=== PATIENT | female | born 1985 | race Caucasian/White ===

== ENCOUNTER 2016-08-06 20:48 | Emergency (ER) | payer OTHER ==
[~2016-08-06] VITALS: Ht 175.3 cm; Wt 83.9 kg
[2016-08-06 20:48] VITALS: Ht 175.3 cm; Wt 83.9 kg
[~2016-08-06 20:48] MED LIST: NO KNOWN MEDICATIONS
--- OUTSIDE RECORDS SUMMARY | 2016-08-06 20:51 | XMS REPORT | Referral Summary ---
Author Author [facility] Organization [facility] Address Unknown Phone Unavailable Care Team Providers Care Tower Observer Name Role Phone No PCP, Pt States Primary Care Physician [phone] Encounter VC Date(s): 04/11/16 - 04/11/16 [facility] [address] [place], [place] [address] Discharge Diagnosis: Upper respiratory virus Discharge Diagnosis: Cough Discharge Disposition: 01-Home or Self Care Attending Physician: Angelo Oates MD Admitting Physician: Angelo Oates MD Vital Signs Most recent to 1 oldest [Reference Range]: Temperature Oral 36.7 degC [35.8-37.3 degC] (04/11/16 7:21 PM) Peripheral Pulse 80 bpm Rate [60-100 bpm] (04/11/16 8:34 PM) Respiratory Rate 18 br/min [14-20 br/min] (04/11/16 8:34 PM) Blood Pressure 113/76 mmHg [90-140/60-90 mmHg] (04/11/16 8:34 PM) SpO2 100 % (04/11/16 8:34 PM) Problem List Condition Effective Dates Status Health Status Informant Tobacco Active patient user(Confirmed) Allergies, Adverse Reactions, Alerts Substance Reaction Severity Status Triaminic Cough Mild Active Medications Nyquil Cold & Flu caps, Oral, q6hr, 0 Refill(s) Start Date: 04/11/16 Status: Ordered Tessalon 200 mg oral capsule 200 mg 1 caps, Oral, TID, # 21 caps, 0 Refill(s) Start Date: 04/11/16 Stop Date: 04/18/16 Status: Ordered Results No data available for this section Immunizations No data available for this section Procedures Procedure Date Related Diagnosis Body Site [place] Teeth 2002 Social History Social History Type Response Smoking Status Current some day smoker; Type: Cigarettes Assessment and Plan No data available for this section
--- OUTSIDE RECORDS SUMMARY | 2016-08-06 20:51 | XMS REPORT | Continuity of Care Document ---
Author Author [facility] Organization [facility] Address Unknown Phone Unavailable Allergies Active Description Code Type Severity Reaction Onset Reported/Identified Relationship to Patient Clinical Status Yes Triaminic Drug Allergy N/A Eczema (rash) 10/22/2010 Yes No Known Food Allergies Food Allergy N/A N/A 11/19/2010 Yes No Allergy Information Drug Allergy N/A N/A 07/11/2013 Medications Problems Date Dx Coded Attending Type Code Diagnosis Diagnosed By 07/10/2013 Jaydon Cohn MD Final 599.0 URINARY TRACT INF NOS 07/10/2013 Jaydon Cohn MD Admitting 789.00 ABDOMINAL PAIN-SITE NOS 07/10/2013 Jaydon Cohn MD Final 789.06 EPIGASTRIC ABD PAIN Procedures Results Encounters ACCT No. Visit Date/Time Discharge Status Pt. Type Provider Facility Loc./Unit Complaint [id number] 07/10/2013 22:45:00 2013 02:22:00 DIS Emergency Jaydon Cohn MD [facility] on [address] [facility]
--- OUTSIDE RECORDS SUMMARY | 2016-08-06 20:51 | XMS REPORT | Continuity of Care Document ---
Author Author [facility] Organization [facility] Address Unknown Phone Unavailable Support Name Relationship Address Phone LAWRENCE PEREIRA DO Caregiver [address] [place] [address] JOSEPHINE RODRÍGUEZ MD Caregiver [address] [place] [address] [place] [phone] MADY ANNIKA Next Of Kin [address] [place] [address] Insurance Providers Payer Name Policy Number Subscriber Name Relationship Self Pay Jose LNuvia Esteves 17 Self Problems Medical Problems Problem Onset Date Status Contusion of right foot Unknown Active Contusion of right foot Unknown Active Medications Medication Dose Route Sig Days/Qty Instructions Order Date Discontinued Date Status Miscellaneous Information 10/27/13 Active Social History Social History Problem Response Recorded Date/Time Smoking Status Unknown if ever smoked 10/27/2013 5:34am Hospital Discharge Instructions No hospital discharge instructions. Plan of Care No plan of care. Functional Status Query Response Date Recorded Physical Hygiene Self October 27, 2013 5:34am Disabilities Visual October 27, 2013 5:34am Devices Used Glasses October 27, 2013 5:34am Dressing Self October 27, 2013 5:34am Ambulation Self October 27, 2013 5:34am Diet Self October 27, 2013 5:34am Mental Status Alert Oriented October 27, 2013 5:34am Disabilities Visual October 27, 2013 5:34am Devices Used Glasses October 27, 2013 5:34am Physical Hygiene Self October 27, 2013 5:34am Dressing Self October 27, 2013 5:34am Ambulation Self October 27, 2013 5:34am Diet Self October 27, 2013 5:34am Allergies, Adverse Reactions, Alerts Allergen Type Severity Reaction Status Last Updated YELLOW TRIAMINIC Allergy Unknown Active 10/27/13 Immunizations Name Given Type Hx Tetanus, Diptheria, Pertussis N NO OPEN SKIN Historical Hx Tetanus, Diptheria, Pertussis N NO OPEN SKIN Historical Vital Signs Acute Vital Signs Vital Response Date/Time Temperature (Fahrenheit) 97.8 deg F (96.8 - 99.1) Temperature (Calculated Celsius) 36.14663 degrees C (36.0 - 37.3) Pulse Rate (adult) 78 bpm (60 - 100) Respiratory Rate 16 breaths/min (10 - 20) O2 Sat by Pulse Oximetry 100 % (90 - 100) Blood Pressure 108/70 mm Hg Height 5 ft 9 in Weight 163 lb Body Mass Index 24.0 kg/m^2 Results No known relevant diagnostic tests, laboratory data and/or discharge summary. Procedures No known history of procedures. Encounters Encounter Location Date/Time Departed Emergency Room [facility] 10/26/13 9:18pm Recent Diagnosis
--- OUTSIDE RECORDS SUMMARY | 2016-08-06 20:51 | XMS REPORT | Continuity of Care Document ---
Author Author Ayaan Reyes MD [facility] Address [address] [facility] [place] [address] Phone Care Team Providers Care Manager Account Management Name Role Phone CollierBeto PP Unavailable Payers Payer name Insurance type Covered republican ID Authorization(s) Unknown Problems Condition Effective Dates (start - stop) Clinical Status Physical examination of employee - *Routine Dysmenorrhea - *Chronic Acute upper respiratory infections of unspecified site - *Acute Other general counseling and advice for contracept - *Acute Depression - *Chronic screening for TB - Recurrent Examination, physical, employee - *Routine Depression - *Stable Pyelonephritis - *Resolved Depression - *Chronic Other general counseling and advice for contracept - *Acute Other general counseling and advice for contracept - *Acute Family History Family Member Diagnosis Age At Onset Status Family h/o (Unknown) Diabetes Yes Family h/o (Unknown) Cancer - ovarian Yes Family h/o (Unknown) Hypertension Yes Father (Unknown) Hypertension Yes Mother (Unknown) Cancer - unknown Yes Family h/o (Unknown) Arthritis Yes Mother (Unknown) Hypertension Yes Mother (Unknown) Diabetes Yes Father (Unknown) Hyperlipidemia Yes Mother (Unknown) Anemia Yes Mother (Unknown) Arthritis Yes Family h/o (Unknown) Hyperlipidemia Yes Father (Unknown) Diabetes Yes Father (Unknown) Arthritis Yes Social History Social History Element Description Quantity Unknown Allergies, Adverse Reactions, Alerts Substance Reaction Severity Status Unknown WARNIN allergie(s) could not be collected because the type is not supported. Please contact the source practice for further details. Medications Medication Instructions Dosage Effective Dates (start - stop) Status Provera 10 mg tablet take 1 tablet (10MG) by oral route every day for 10 days start with next menstruation 10 MG - No Longer Active Immunizations Vaccine Date Status Comments Unknown Results Test Name Date and Time Measure Units Reference Range Abnormal Flag Comments Unknown Vital Signs Date / Time: Height Weight Pulse Rate Blood Pressure Temperature /15:54:00 69.00 in 175.00 lbs 76 /min 110/80 mm[Hg] 97.1 F Procedures Procedure Date Unknown Encounters Encounter Location Date Patient Visit [facility] [place] Patient [facility] Patient Visit [facility] [place] Patient Visit [facility] [place] Patient Visit [facility] [place] Patient Visit [facility] [place] Patient Visit [facility] [place] Patient Visit [facility] [place] Patient Visit [facility] [place] Advance Directives Directive Effective Date Unknown
--- OUTSIDE RECORDS SUMMARY | 2016-08-06 20:51 | XMS REPORT | Referral Summary ---
Author Author [facility] Organization [facility] Address Unknown Phone Unavailable Care Team Providers Care Academy Education Director Name Role Phone No PCP, [facility] Primary Care Physician [phone] Encounter VC Date(s): 04/22/16 - 04/22/16 [facility] [address] [place] [address] [facility] Discharge Diagnosis: Cough Discharge Diagnosis: Maxillary sinusitis Discharge Disposition: 01-Home or Self Care Attending Physician: Desire Lai APRN Attending Physician: Provider, Immediate Care Admitting Physician: Provider, Immediate Care Vital Signs Most recent to 1 oldest [Reference Range]: Temperature Oral 36.2 degC [35.8-37.3 degC] (04/22/16 3:31 PM) Peripheral Pulse 92 bpm Rate [60-100 bpm] (04/22/16 3:31 PM) Blood Pressure 115/70 mmHg [90-140/60-90 mmHg] (04/22/16 3:31 PM) SpO2 98 % (04/22/16 3:31 PM) Problem List Condition Effective Dates Status Health Status Informant Tobacco Active patient user(Confirmed) Allergies, Adverse Reactions, Alerts Substance Reaction Severity Status Triaminic Cough Mild Active Medications Augmentin 875 mg-125 mg oral tablet 1 tabs, Oral, q12hr, with food or milk, X 7 days, # 14 tabs, 0 Refill(s), Pharmacy: [facility]/pharmacy #[id number] Start Date: 04/22/16 Stop Date: 04/29/16 Status: Ordered Nyquil Cold & Flu caps, Oral, q6hr, 0 Refill(s) Start Date: 04/11/16 Status: Ordered promethazine-codeine 6.25 mg-10 mg/5 mL oral syrup 5 mL, Oral, q4hr, as needed for cough, # 60 mL, 0 Refill(s) Start Date: 04/22/16 Status: Ordered Tessalon 200 mg oral capsule 200 mg 1 caps, Oral, TID, # 21 caps, 0 Refill(s) Start Date: 04/11/16 Stop Date: 04/18/16 Status: Ordered Results No data available for this section Immunizations No data available for this section Procedures Procedure Date Related Diagnosis Body Site [place] Teeth 2002 Social History Social History Type Response Smoking Status Current some day smoker; Type: Cigarettes Assessment and Plan Extracted from: Title: Office Visit Note Author: Desire Lai [employer]OM[employer] THREAD WINDER Date: 04/22/16 Assessment/Plan 1.Maxillary sinusitis augmentin sent to pharmacy. continue home treatments that are helping. push fluids. Diagnosis and treatment discussed. Patient advised to follow-up with PCP in 2-3 days if symptoms do not improve. If symptoms worsen at any time , patient will go to the nearest ER for further evaluation. Patient stable upon discharge, alert and orientated with no apparent distress, all questions answered, and indicated understanding of discharge instructions. Ordered: Office Visit Level 3 Est 61232 2.Cough,Cough CXR negative. continue home treatments as needed. push fluids. use humidifier. Diagnosis and treatment discussed. Patient advised to follow-up with PCP in 2-3 days if symptoms do not improve. If symptoms worsen at any time , patient will go to the nearest ER for further evaluation. Patient stable upon discharge, alert and orientated with no apparent distress, all questions answered, and indicated understanding of discharge instructions. Ordered: Office Visit Level 3 Est [address]147
--- OUTSIDE RECORDS SUMMARY | 2016-08-06 20:51 | XMS REPORT | Referral Summary ---
Author Author [facility] Organization [facility] Address Unknown Phone Unavailable Care Team Providers Care Sweater Designer Name Role Phone No PCP, Pt States Primary Care Physician [phone] Encounter [facility] [id number] Date(s): 06/03/16 - 06/03/[address] [facility] [address] [place], [place] [address] Discharge Diagnosis: Dental infection Discharge Diagnosis: Fractured tooth Discharge Disposition: 01-Home or Self Care Attending Physician: Aaron Wick DO Admitting Physician: Aaron Wick DO Vital Signs Most recent to 1 oldest [Reference Range]: Temperature Temporal 37.2 degC Artery [36.3-37.8 (06/03/16 3:50 PM) degC] Peripheral Pulse 66 bpm Rate [60-100 bpm] (06/03/16 3:50 PM) Respiratory Rate 16 br/min [14-20 br/min] (06/03/16 3:50 PM) Blood Pressure 125/75 mmHg [90-140/60-90 mmHg] (06/03/16 3:50 PM) SpO2 100 % (06/03/16 3:50 PM) Problem List Condition Effective Dates Status Health Status Informant Tobacco Active patient user(Confirmed) Allergies, Adverse Reactions, Alerts Substance Reaction Severity Status Triaminic Cough Mild Active Medications amoxicillin 500 mg oral capsule 500 mg 1 caps, Oral, TID, X 7 days, # 21 caps, 0 Refill(s) Start Date: 06/03/16 Stop Date: 06/10/16 Status: Ordered Nyquil Cold & Flu caps, [...] Date: 04/11/16 Stop Date: 04/18/16 Status: Ordered Tylenol with Codeine #3 oral tablet 1 tabs, Oral, q4hr, as needed for pain, # 12 tabs, 0 Refill(s) Start Date: 06/03/16 Status: Ordered Results No data available for this section Immunizations No data available for this section Procedures Procedure Date Related Diagnosis Body Site [place] Teeth 2002 Social History Social History Type Response Smoking Status Current some day smoker; Type: Cigarettes Assessment and Plan No data available for this section
--- OUTSIDE RECORDS SUMMARY | 2016-08-06 20:52 | XMS REPORT | Referral Summary ---
Author Author [facility] Organization [facility] Address Unknown Phone Unavailable Care Team Providers Care Embroiderer Name Role Phone Other Doctor, [facility] Primary Care Physician Unavailable Encounter [facility] [id number] Date(s): 10/17/15 - 10/17/[address] [facility] [address] [place], [place] [address] Discharge Diagnosis: Right sided abdominal pain Discharge Diagnosis: Urinary tract infection Discharge Disposition: 01-Home or Self Care Attending Physician: Ken Calderon MD Admitting Physician: Ken Calderon MD Vital Signs Most recent to 1 oldest [Reference Range]: Temperature Oral 37.0 degC [35.8-37.3 degC] (10/17/15 5:01 PM) Peripheral Pulse 73 bpm Rate [60-100 bpm] (10/17/15 5:01 PM) Heart Rate Monitored 71 bpm [60-100 bpm] (10/17/15 7:33 PM) Respiratory Rate 18 br/min [14-20 br/min] (10/17/15 5:01 PM) Blood Pressure 116/86 mmHg [90-140/60-90 mmHg] (10/17/15 7:15 PM) Mean Arterial 90 mmHg Pressure, Cuff (10/17/15 7:33 PM) SpO2 98 % (10/17/15 5:46 PM) Problem List Condition Effective Dates Status Health Status Informant Tobacco Active patient user(Confirmed) Allergies, Adverse Reactions, Alerts Substance Reaction Severity Status Triaminic Cough Mild Active Medications Cipro 500 mg oral tablet 500 mg 1 tabs, Oral, q12hr, X 7 days, # 14 tabs, 0 Refill(s) Start Date: 10/17/15 Stop Date: 10/24/15 Status: Ordered Zofran ODT 4 mg oral tablet, disintegrating 4 mg 1 tabs, Oral, q6hr, X 5 days, # 20 tabs, 0 Refill(s) Start Date: 10/17/15 Stop Date: 10/22/15 Status: Ordered Results Hematology Most recent to 1 oldest [Reference Range]: WBC [4.8-10.8 8.2 10*3/uL 10*3/uL] (10/17/15 5:43 PM) RBC [4.00-5.20] 4.65 (10/17/15 5:43 PM) Hgb [12.0-16.0 13.4 gm/dL gm/dL] (10/17/15 5:43 PM) Hct [37.0-47.0 %] 40.2 % (10/17/15 5:43 PM) MCV [82.0-99.0 fL] 86.5 fL (10/17/15 5:43 PM) MCH [27.0-32.0 pg] 28.8 pg (10/17/15 5:43 PM) MCHC [32.0-36.0 33.3 gm/dL gm/dL] (10/17/15 5:43 PM) RDW [11.5-14.5 %] 13.5 % (10/17/15 5:43 PM) Platelet [150-400 227 10*3/uL 10*3/uL] (10/17/15 5:43 PM) MPV [9.4-12.4 fL] 10.6 fL (10/17/15 5:43 PM) Immature 0.4 % Granulocytes (10/17/15 5:43 PM) [0.0-1.0 %] Neutrophils [51-75 63 % %] (10/17/15 5:43 PM) Lymphocytes [20-46 27 % %] (10/17/15 5:43 PM) Monocytes [4-11 %] 7 % (10/17/15 5:43 PM) Eosinophils [0-4 %] 2 % (10/17/15 5:43 PM) Basophils [0-2 %] 0 % (10/17/15 5:43 PM) Neutro Absolute 5.12 10*3 [1.90-7.00 10*3] (10/17/15 5:43 PM) Lymph Absolute 2.24 10*3 [0.80-3.30 10*3] (10/17/15 5:43 PM) Kane Absolute 0.61 10*3 [0.30-1.00 10*3] (10/17/15 5:43 PM) Eos Absolute 0.18 10*3 [0.00-0.50 10*3] (10/17/15 5:43 PM) Baso Absolute 0.02 10*3 [0.00-0.20 10*3] (10/17/15 5:43 PM) Chemistry Most recent to 1 oldest [Reference Range]: Sodium Lvl [136-144 137 mEq/L mEq/L] (10/17/15 5:43 PM) Potassium Lvl 3.5 mEq/L [3.6-5.1 mEq/L] *LOW* (10/17/15 5:43 PM) Chloride [99-109 105 mEq/L mEq/L] (10/17/15 5:43 PM) CO2 [22-32 mEq/L] 24 mEq/L (10/17/15 5:43 PM) AGAP [3-20] 8 (10/17/15 5:43 PM) BUN [4-20 mg/dL] 12 mg/dL (10/17/15 5:43 PM) Glucose Lvl [70-100 100 mg/dL mg/dL] (10/17/15 5:43 PM) Creatinine Lvl 0.70 mg/dL [0.44-1.03 mg/dL] (10/17/15 5:43 PM) eGFR [>60] >60 1 (10/17/15 5:43 PM) Calcium Lvl 9.2 mg/dL [8.6-10.0 mg/dL] (10/17/15 5:43 PM) Albumin Lvl [3.5-4.8 3.9 gm/dL gm/dL] (10/17/15 5:43 PM) Total Protein 7.2 gm/dL [6.1-7.9 gm/dL] (10/17/15 5:43 PM) Globulin [1.9-4.3 3.3 gm/dL gm/dL] (10/17/15 5:43 PM) ALT [14-54 U/L] 12 U/L *LOW* (10/17/15 5:43 PM) AST [15-41 U/L] 16 U/L (10/17/15 5:43 PM) Alk Phos [26-104 71 U/L U/L] (10/17/15 5:43 PM) Bili Total [0.2-1.2 0.5 mg/dL 2 mg/dL] (10/17/15 5:43 PM) Lipase Lvl [8-48 22 U/L U/L] (10/17/15 5:43 PM) U Beta hCG Ql Negative (10/17/15 6:16 PM) 1Result Comment: Multiply eGFR results by 1.21 for race. 2Result Comment: Naproxen, specifically the metabolite O-desmethylnaproxen, may cause spurious elevation in Total Bilirubin levels. Urinalysis Most recent to 1 oldest [Reference Range]: UA Color Yellow (10/17/15 6:16 PM) UA Appear Sl Cloudy (10/17/15 6:16 PM) UA pH [5.0-8.0] 6.0 (10/17/15 6:16 PM) UA Leuk Est Pos 3+ [Negative] *ABN* (10/17/15 6:16 PM) UA Nitrite Negative [Negative] (10/17/15 6:16 PM) UA Protein Negative [Negative] (10/17/15 6:16 PM) UA Glucose Negative [Negative] (10/17/15 6:16 PM) UA Ketones Negative [Negative] (10/17/15 6:16 PM) UA Urobilinogen Negative [<1.0] (10/17/15 6:16 PM) UA Bili [Negative] Negative (10/17/15 6:16 PM) UA Blood [Negative] Pos 1+ *ABN* (10/17/15 6:16 PM) UA Spec Grav 1.020 [1.003-1.030] (10/17/15 6:16 PM) Type Clean Catch (10/17/15 6:16 PM) UA WBC [0-4] 20-50 *ABN* (10/17/15 6:16 PM) UA RBC [0-2] 5-10 *ABN* (10/17/15 6:16 PM) Epithelial Cells 5-10 (10/17/15 6:16 PM) UA Bacteria Occasional *ABN* (10/17/15 6:16 PM) UA Mucous Present (10/17/15 6:16 PM) Immunizations No data available for this section Procedures Procedure Date Related Diagnosis Body Site [place] Teeth 2002 Social History Social History Type Response Smoking Status Former smoker; Type: Cigarettes Assessment and Plan No data available for this section
--- OUTSIDE RECORDS SUMMARY | 2016-08-06 20:52 | XMS REPORT | Referral Summary ---
Author [facility] Address Unknown Phone Unavailable Care Team Providers Care Submarine Advisory Team Watch Officer Name Role Phone Other Doctor, [facility] Primary Care Physician Unavailable Encounter [facility] [id number] Date(s): 11/15/15 - 11/15/15 [facility] [address] [id number] Discharge Disposition: 01-Home or Self Care Attending Physician: Reina Carbone MD Admitting Physician: Drew Warner MD Vital Signs Most recent to 1 oldest [Reference Range]: Temperature Oral 36.9 degC [35.8-37.3 degC] (11/15/15 3:29 PM) Peripheral Pulse 74 bpm Rate [60-100 bpm] (11/15/15 3:29 PM) Respiratory Rate 28 br/min [14-20 br/min] *HI* (11/15/15 3:29 PM) Blood Pressure 116/74 mmHg [90-140/60-90 mmHg] (11/15/15 3:29 PM) Problem List Condition Effective Dates Status Health Status Informant Tobacco Active patient user(Confirmed) Allergies, Adverse Reactions, Alerts Substance Reaction Severity Status Triaminic Cough Mild Active Medications No Known Medications Results Hematology Most recent to 1 oldest [Reference Range]: WBC [4.8-10.8 8.3 10*3/uL 10*3/uL] (11/15/15 4:04 PM) RBC [4.00-5.20] 4.69 (11/15/15 4:04 PM) Hgb [12.0-16.0 13.4 gm/dL gm/dL] (11/15/15 4:04 PM) Hct [37.0-47.0 %] 40.2 % (11/15/15 4:04 PM) MCV [82.0-99.0 fL] 85.7 fL (11/15/15 4:04 PM) MCH [27.0-32.0 pg] 28.6 pg (11/15/15 4:04 PM) MCHC [32.0-36.0 33.3 gm/dL gm/dL] (11/15/15 4:04 PM) RDW [11.5-14.5 %] 13.3 % (11/15/15 4:04 PM) Platelet [150-400 227 10*3/uL 10*3/uL] (11/15/15 4:04 PM) MPV [8.8-14.8 fL] 11.3 fL (11/15/15 4:04 PM) Immature 0.2 % Granulocytes (11/15/15 4:04 PM) [0.0-1.0 %] Neutrophils [51-75 65 % %] (11/15/15 4:04 PM) Lymphocytes [20-46 25 % %] (11/15/15 4:04 PM) Monocytes [4-11 %] 7 % (11/15/15 4:04 PM) Eosinophils [0-4 %] 2 % (11/15/15 4:04 PM) Basophils [0-2 %] 1 % (11/15/15 4:04 PM) Neutro Absolute 5.38 10*3 [1.90-7.00 10*3] (11/15/15 4:04 PM) Lymph Absolute 2.10 10*3 [0.80-3.30 10*3] (11/15/15 4:04 PM) [place] Absolute 0.58 10*3 [0.30-1.00 10*3] (11/15/15 4:04 PM) Eos Absolute 0.19 10*3 [0.00-0.50 10*3] (11/15/15 4:04 PM) Baso Absolute 0.04 10*3 [0.00-0.20 10*3] (11/15/15 4:04 PM) Chemistry Most recent to 1 oldest [Reference Range]: Sodium Lvl [135-144 141 mEq/L mEq/L] (11/15/15 4:04 PM) Potassium Lvl 3.7 mEq/L [3.5-5.2 mEq/L] (11/15/15 4:04 PM) Chloride [99-111 107 mEq/L mEq/L] (11/15/15 4:04 PM) CO2 [22-31 mEq/L] 27 mEq/L (11/15/15 4:04 PM) AGAP [3-20] 7 (11/15/15 4:04 PM) BUN [7-19 mg/dL] 14 mg/dL (11/15/15 4:04 PM) Glucose Lvl [70-99 97 mg/dL mg/dL] (11/15/15 4:04 PM) Creatinine Lvl 0.81 mg/dL [0.57-1.11 mg/dL] (11/15/15 4:04 PM) eGFR [>60 mL/min] >60 mL/min 1 (11/15/15 4:04 PM) Calcium Lvl 9.8 mg/dL [8.9-10.5 mg/dL] (11/15/15 4:04 PM) Albumin Lvl [3.5-5.0 4.5 gm/dL gm/dL] (11/15/15 4:04 PM) Total Protein 7.0 gm/dL 2 [6.1-7.7 gm/dL] (11/15/15 4:04 PM) Globulin [1.8-4.0 2.5 gm/dL gm/dL] (11/15/15 4:04 PM) ALT [0-55 U/L] 8 U/L (11/15/15 4:04 PM) AST [5-34 U/L] 13 U/L (11/15/15 4:04 PM) Alk Phos [40-150 73 U/L U/L] (11/15/15 4:04 PM) Bili Total [0.2-1.2 0.6 mg/dL mg/dL] (11/15/15 4:04 PM) Prolactin [5.2-26.5 28.7 ng/mL ng/mL] *HI* (11/15/15 4:04 PM) U Beta hCG Ql Negative (11/15/15 3:50 PM) TSH with Reflex Free 1.10 T4 [0.35-4.94] (11/15/15 4:04 PM) 1Result Comment: Multiply eGFR results by 1.21 for race. 2Result Comment: Please note new reference range for adult Protein. Urinalysis Most recent to 1 oldest [Reference Range]: UA Color Yellow (11/15/15 4:10 PM) UA Appear Clear (11/15/15 4:10 PM) UA pH [5.0-8.0] 7.0 (11/15/15 4:10 PM) UA Leuk Est Negative [Negative] (11/15/15 4:10 PM) UA Nitrite Negative [Negative] (11/15/15 4:10 PM) UA Protein Negative [Negative] (11/15/15 4:10 PM) UA Glucose Negative [Negative] (11/15/15 4:10 PM) UA Ketones Negative [Negative] (11/15/15 4:10 PM) UA Urobilinogen 0.2 mg/dL [<=1.0 mg/dL] (11/15/15 4:10 PM) UA Bili [Negative] Positive *ABN* (11/15/15 4:10 PM) UA Blood [Negative] Negative (11/15/15 4:10 PM) UA Spec Grav 1.025 [1.003-1.030] (11/15/15 4:10 PM) Type Cl Catch (11/15/15 4:10 PM) Immunizations No data available for this section Procedures Procedure Date Related Diagnosis Body Site [place] 2003 Social History Social History Type Response Smoking Status Former smoker; Type: Cigarettes Assessment and Plan Extracted from: Title: Ambulatory Patient Education Author: Drew Warner MD Date: 01/20 Family Medicine Menstruation Menstruation is the monthly passing of blood, tissue, fluid and mucus, also know as a period. Your body is shedding the lining of the uterus. The flow, or amount of blood, usually lasts from 37 days each month. Hormones control the menstrual cycle. Hormones are a chemical substance produced by endocrine glands in the body to regulate different bodily functions. The first menstrual period may start any time between age 8 years to 16 years. However, it usually starts around age 12 years. Some girls have regular monthly menstrual cycles right from the beginning. However, it is not unusual to have only a couple of drops of blood or spotting when you first start menstruating. It is also not unusual to have two periods a month or miss a month or two when first starting your periods. SYMPTOMS Mild to moderate abdominal cramps. Aching or pain in the lower back area. Symptoms may occur 510 days before your menstrual period starts. These symptoms are referred to as premenstrual syndrome (PMS). These symptoms can include: Headache. Breast tenderness and swelling. Bloating. Tiredness (fatigue). Mood changes. Craving for certain foods. These are normal signs and symptoms and can vary in severity. To help relieve these problems, ask your caregiver if you can take [id number] medications for pain or discomfort. If the symptoms are not controllable, see your caregiver for help. HORMONES INVOLVED IN MENSTRUATION Menstruation comes about because of hormones produced by the pituitary gland in the brain and the ovaries that affect the uterine lining. First, the pituitary gland in the brain produces the hormone follicle stimulating hormone (FSH). FSH stimulates the ovaries to produce estrogen, which thickens the uterine lining and begins to develop an egg in the ovary. About 14 days later, the pituitary gland produces another hormone called luteinizing hormone (LH). LH causes the egg to come out of a sac in the ovary ( ovulation). The empty sac on the ovary called the corpus luteum is stimulated by another hormone from the pituitary gland called luteotropin. The corpus luteum begins to produce the estrogen and progesterone hormone. The progesterone hormone prepares the lining of the uterus to have the fertilized egg (egg combined with sperm) attach to the lining of the uterus and begin to develop into a fetus. If the egg is not fertilized, the corpus luteum stops producing estrogen and progesterone, it disappears, the lining of the uterus sloughs off and a menstrual period begins. Then the menstrual cycle starts all over again and will continue monthly unless occurs or menopause begins. The secretion of hormones is complex. Various parts of the body become involved in many chemical activities. Female sex hormones have other functions in a woman 's body as well. Estrogen increases a woman's sex drive (libido). It naturally helps body get rid of fluids (diuretic). It also aids in the process of building new bone. Therefore, maintaining hormonal health is essential to all levels of a woman's well being. These hormones are usually present in normal amounts and cause you to menstruate. It is the relationship between the (small) levels of the hormones that is critical. When the balance is upset, menstrual irregularities can occur. HOW DOES THE MENSTRUAL CYCLE HAPPEN? Menstrual cycles vary in length from 2135 days with an average of 29 days. The cycle begins on the first day of bleeding. At this time, the pituitary gland in the brain releases FSH that travels through the bloodstream to the ovaries. The FSH stimulates the follicles in the ovaries. This prepares the body for ovulation that occurs around the 14th day of the cycle. The ovaries produce estrogen, and this makes sure conditions are right in the uterus for implantation of the fertilized egg. When the levels of estrogen reach a high enough level, it signals the gland in the brain (pituitary gland) to release a surge of LH. This causes the release of the ripest egg from its follicle (ovulation). Usually only one follicle releases one egg, but sometimes more than one follicle releases an egg especially when stimulating the ovaries for in vitro fertilization. The egg can then be collected by either fallopian tube to await fertilization. The burst follicle within the ovary that is left behind is now called the corpus luteum or "yellow body." The corpus luteum continues to give off (secrete) reduced amounts of estrogen. This closes and hardens the cervix. It dries up the mucus to the naturally infertile condition. The corpus luteum also begins to give off greater amounts of progesterone. This causes the lining of the uterus (endometrium) to thicken even more in preparation for the fertilized egg. The egg is starting to journey down from the fallopian tube to the uterus. It also signals the ovaries to stop releasing eggs. It assists in returning the cervical mucus to its infertile state. If the egg implants successfully into the womb lining and occurs, progesterone levels will continue to raise. It is often this hormone that gives some women a feeling of well being, like a "natural high." Progesterone levels drop again after childbirth. If fertilization does not occur, the corpus luteum dies, stopping the production of hormones. This sudden drop in progesterone causes the uterine lining to break down, accompanied by blood (menstruation). This starts the cycle back at day 1. The whole process starts all over again. Woman go through this cycle every month from puberty to menopause. Women have breaks only for and (), unless the woman has health problems that affect the female hormone system or chooses to use oral contraceptives to have unnatural menstrual periods. HOME CARE INSTRUCTIONS Keep track of your periods by using a calendar. If you use tampons, get the least absorbent to avoid toxic shock syndrome. Do not leave tampons in the vagina over night or longer than 6 hours. Wear a sanitary pad over night. Exercise 35 times a week or more. Avoid foods and drinks that you know will make your symptoms worse before or during your period. SEEK MEDICAL CARE IF: You develop a fever with your period. Your periods are lasting more than 7 days. Your period is so heavy that you have to change pads or tampons every 30 minutes. You develop clots with your period and never had clots before. You cannot get relief from hkzi-fly-cxgtaus medication for your symptoms. Your period has not started, and it has been longer than 35 days. This information is not intended to replace advice given to you by your health care provider. Make sure you discuss any questions you have with your health care provider. Document Released: 03/14/2003 Document Revised: 04/14/2015 Document Reviewed: [facility] Patient Information 2016 [employer], [facility]. No follow up information was provided.
--- OUTSIDE RECORDS SUMMARY | 2016-08-06 20:52 | XMS REPORT | Referral Summary ---
Author Organization Unknown Address Unknown Phone Unavailable Care Team Providers Care Miller Supervisor Name Role Phone Other Doctor, [facility] Primary Care Physician Unavailable Encounter [facility] [id number] Date(s): 05/18/14 - 05/18/14 [facility] [address] [place], [place] [address] Discharge Diagnosis: Pharyngitis Discharge Disposition: Home or Self Care Attending Physician: Ochoa Degroot MD Admitting Physician: Ochoa Degroot MD Vital Signs Most recent to 1 oldest [Reference Range]: Temperature Oral 36.7 degC [35.8-37.3 degC] (05/18/14 7:50 PM) Peripheral Pulse 85 bpm Rate [60-100 bpm] (05/18/14 7:50 PM) Respiratory Rate 14 br/min [14-20 br/min] (05/18/14 7:50 PM) Blood Pressure 99/70 mmHg [90-140/60-90 mmHg] (05/18/14 6:37 PM) Most recent to 1 oldest [Reference Range]: SpO2 100 % (05/18/14 7:50 PM) Problem List Condition Effective Dates Status Health Status Informant Tobacco Active patient user(Confirmed) Allergies, Adverse Reactions, Alerts Substance Reaction Severity Status Triaminic Cough Mild Active Medications amoxicillin 500 mg oral tablet 1 tabs, Oral, TID, X 10 days, # 30 tabs, 0 Refill(s) Start Date: 05/18/14 Stop Date: 05/28/14 Status: Ordered Results No data available for this section Immunizations No data available for this section Procedures No data available for this section Social History Social History Type Response Smoking Status Former smoker; Type: Cigarettes Assessment and Plan No data available for this section
--- NOTE | 2016-08-06 21:04 | NUR ---
PROVIDER MAXINE ISBELL IN ROOM TO SEE PT
--- NOTE | 2016-08-06 21:11 | ERPDOC ---
Departure Disposition Decision Date: August 06, 2016 Disposition Decision Time: 22:23 (CARISA QUILES APRN) Disposition: 01 DISCHARGED HOME, SELF-CARE Impression Impression (CARISA QUILES APRN) Impression: Primary Impression: Muscle strain of right gluteal region Encounter type: initial encounter Qualified Codes: S76.311A - Strain of muscle, fascia and tendon of the posterior muscle group at thigh level, right thigh, initial encounter Condition: Stable Seen By: Mid-level only (CARISA QUILES APRN) Referrals: LAWRENCE PEREIRA DO (Family) Patient Instructions: Muscle Strain (ED) Problems/Meds/Labs Reviewed?: Yes Medications reviewed and manag: Yes (CARISA QUILES APRN) Additional Instructions: 1. Ice your buttock for 15-20 minutes every 1-2 hours 2. Take Ibuprofen 800 mg every 8 hours for pain. Take with food. 3. Follow up with your doctor if you develop swelling, bruising or become unable to walk. 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 She does not normally do karate but wanted to show them a move she just learned in their new Karate Kid type classes. Did not fall or suffer any additional injury. Complains of pain to the right buttock and radiation down leg. No numbness. Did not take anything for pain tonight. Pain/Severity Scale: Now: 10/10 Pain/Injury Location: right hip, right leg Method of Injury: twisted Modifying Factors/Context: WORSE WITH: movement Hx of Similar Symptoms: Yes (hx sciatica) Quality: stabbing Associated Symptoms: numbness (CARISA QUILES APRN) Allergies: Coded Allergies: chlorpheniramine (Verified Allergy, Mild, HIVES, 08/06/16) dextromethorphan (Verified Allergy, Mild, HIVES, 08/06/16) pseudoephedrine (Verified Allergy, Mild, HIVES, 08/06/16) Past History Past Medical History Psychological: depression (CARISA QUILES APRN) Surgical History Reproductive/: tubal ligation (CARISA QUILES APRN) Vaccines Hx Tetanus, Diptheria, Pertuss: No (NO OPEN SKIN) (CARISA QUILES APRN) Social History Smoking Status: Current some day smoker Substance Use Type: does not use Alcohol Intake: occasionally Household Members: family Current Occupational Status: employed (CARISA QUILES APRN) Review of Systems Constitutional Constitutional: DENIES: fever (CARISA QUILES APRN) Cardiovascular Cardiac: DENIES: chest pain, dyspnea on exertion (CARISA QUILES APRN) General: DENIES: dysuria, frequency, hematuria Female: LMP (08/05/2016) (CARISA QUILES APRN) Musculoskeletal General: pain (rt hip) (CARISA QUILES APRN) Psychiatric Psychiatric: depression (CARISA QUILES APRN) All other Systems All Other Systems: Reviewed and Negative (CARISA QUILES APRN) Physical Exam General General Nourishment: well nourished, well developed, appears stated age, no acute distress (CARISA QUILES APRN) Vitals and Pain First Documented Vital Signs Date Time Temp Pulse Resp B/P Pulse Ox O2 Delivery O2 Flow Rate FiO2 08/06/16 20:48 98.0 72 18 122/73 100 Room Air (JIMENEZ FERRER DO) Vitals and Pain Weight: Kilograms: Height (feet): 5 Height (inches): 9 Triage Pain Scale: (CARISA QUILES APRN) ENMT (brief) ENMT Brief: FOUND: mucosa moist, other (poor oral hygiene) (CARISA QUILES APRN) Respiratory (brief) Respiratory: FOUND: clear all [place], equal bilaterally (CARISA QUILES APRN) Cardiovascular (brief) Cardiac: FOUND: regular rate, regular rhythm (CARISA QUILES APRN) Abdomen (brief) Abdominal Brief: FOUND: bowel normo active x4, soft, NOT FOUND: tender (CARISA QUILES APRN) Musculoskeletal (brief) Musculoskeletal Brief: FOUND: tenderness (mild tenderness to right hip, tender sciatic notch) (CARISA QUILES APRN) Integumentary (brief) Integumentary Brief: FOUND: dry, pink, warm (CARISA QUILES APRN) Neurologic (brief) Neurological Brief: FOUND: motor-no gross deficits (CARISA QUILES APRN) Psychiatric (brief) Psychiatric Brief: FOUND: alert, attentive, normal affect, oriented (CARISA QUILES APRN) Differential Diagnoses Considering: Dislocation, Fracture, Sprain, Strain, Hamstring Tear (CARISA QUILES APRN) Progress Results/Orders Orders Procedure Category Date Status Time Ibuprofen (Motrin) PHA 08/06/16 Complete 21:15 Pelvis W/2 View Rt Hip RAD 08/06/16 Taken (JIMENEZ FERRER DO) Orders Procedure Category Date Status Time Ibuprofen (Motrin) PHA 08/06/16 Complete 21:15 Pelvis W/2 View Rt Hip RAD 08/06/16 Taken (CARISA QUILES APRN) Medications Current ED Medications Ibuprofen (Motrin) 800 mg O ONCE PO Last administered on 08/06/16 21:24; Start 08/06/16 at 21:15; Stop 08/06/16 at 21:16; Status DC (JIMENEZ FERRER DO) Medications Current ED Medications Ibuprofen (Motrin) 800 mg O ONCE PO Last administered on 08/06/16 21:24; Start 08/06/16 at 21:15; Stop 08/06/16 at 21:16; Status DC (CARISA QUILES APRN) Progress Progress 2222- Patient allowed to ambulate in room, can bear weight both legs. Reexamined and no ecchymosis, swelling noticed to right buttock where most of the pain is located. Advised aggressive ice and ibuprofen TID, f/u pcp. (CARISA QUILES APRN) Xray Xray : Xray: Pelvis (with right hip) Interpretation: Normal, Interpreted by Me (kenn overread) (CARISA QUILES APRN) CARISA QUILES APRN August 06, 2016 21:11 JIMENEZ FERRER DO August 06, 2016 22:49
[2016-08-06] MEDS ORDERED: IBUPROFEN 800 MG TABLET PO ONE (21:15)
--- OUTSIDE RECORDS SUMMARY | 2016-08-06 21:15 | XMS REPORT | Continuity of Care Document ---
Author Author [facility] Organization [facility] Address Unknown Phone Unavailable Support Name Relationship Address Phone LAWRENCE PEREIRA DO Caregiver [address] [place] [address] JOSEPHINE RODRÍGUEZ MD Caregiver [address] [place] [address] [place] [phone] MADY ANNIKA Next Of Kin [address] [place] [address] Insurance Providers Payer Name Policy [...] F (96.8 - 99.1) Temperature (Calculated Celsius) 36.81978 degrees C (36.0 - 37.3) Pulse Rate [...] Encounters Encounter Location Date/Time Departed Emergency Room [facility] 10/26/13 9:18pm Recent Diagnosis
--- OUTSIDE RECORDS SUMMARY | 2016-08-06 21:15 | XMS REPORT | Continuity of Care Document ---
Author Author [facility] Organization [facility] Address Unknown Phone Unavailable Allergies Active Description [...] Status Pt. Type Provider Facility Loc./Unit Complaint [id number] 07/10/2013 22:45:00 2013 02:22:00 DIS Emergency Jaydon Cohn MD [facility] [address] [place]
[2016-08-06 22:45] VITALS: BP 105/61; PULSE 72; RESP 18; TEMP 98; O2SAT 100
--- NOTE | 2016-08-06 22:45 | NUR ---
DEPART PT IS GIVEN DISMISSAL INSTRUCTIONS WITH VERBAL UNDERSTANDING. PT LEAVES SLOWLY AMBULATING AND BEARING WT ON INJURED LEG, TO ED REGISTRATION DESK.
--- NOTE | 2016-08-07 08:22 | DI ---
Indication: ITS.REASON: twisting injury-rt hip p ain PROCEDURE: PELVIS W/2 VIEW RT HIP: Encounter: Initial Comparison: None Findings: There is no acute fracture, dislocation or malalignment identified. Impression: No acute osseous abnormality. .
== END 2016-08-06 22:45 | disposition home or self-care (01) ==
LOC: ED 20:48
DX: S76.311A Strain of muscle, fascia and tendon of the posterior muscle group at thigh level, right thigh, initial encounter (principal); X50.1XXA Overexertion from prolonged static or awkward postures, initial encounter; Y93.75 Activity, martial arts; Y92.838 Other recreation area as the place of occurrence of the external cause; Y99.8 Other external cause status